=== PATIENT | female | born 1980 | race Caucasian/White ===

== ENCOUNTER 2025-06-15 17:39 | Emergency (ER) | payer SELFPAY ==
[2025-06-15 17:44] VITALS: BP 120/79
[2025-06-15 18:01] LABS: Hematocrit 43.2 % (37.0-47.0); Hemoglobin 14.3 g/dL (12.0-16.0); Mean Corp Hgb Conc. 33.1 g/dL (33.0-37.0); Mean Corpuscular Volume 85.0 fL (81.0-99.0); Nucleated Red Blood Cells % 0 %; Platelet Count 223 10^3/uL (130-400); Red Cell Dist. Width 13.6 % (11.5-14.5)
[2025-06-15 18:11] LABS: Urine Character Clear (Clear)
[2025-06-15 18:17] LABS: Urine Red Blood Cell 0-2 /HPF (0-2); Urine White Cell 0-2 /HPF (0-5)
[2025-06-15 18:23] LABS: ALT (SGPT) 23 U/L (0-35); AST (SGOT) 29 U/L (14-36); Albumin 4.9 g/dl (3.5-5.0); Alkaline Phosphatase 73 U/L (38-126); Blood Urea Nitrogen 9 mg/dl (7-17); Calcium 9.9 mg/dl (8.4-10.2); Carbon Dioxide 26 mmol/L (22-30); Glucose 98 mg/dl (70-99); Lipase 154 U/L (23-300); Total Protein 8.2 g/dl (6.3-8.2); eGFR > 60.00
[2025-06-15 18:51] LABS: Chloride 102 mmol/L (98-107); Potassium 4.0 mmol/L (3.5-5.1); Sodium 138 mmol/L (135-145)
[2025-06-15 21:32] VITALS: BMI 37.2
[2025-06-15 21:34] VITALS: BP 128/76
--- NOTE | 2025-06-15 21:59 | ED.GENMED ---
Addendum entered and electronically signed by Alicia Espinoza MD 06/16/25 04:00:
358AM Pt now states that she watns to go home and feels better. She is comfortable appearing. Abd soft, nd, nt. I still recommend admission/obs given her sxs, no etiology noted, plan for consultants, possibility of intermittent torsion, etc but
she declines. Pt aware if she changes her mind,e ncoruaged to rted dannie.
Addendum entered and electronically signed by Alicia Espinoza MD 06/16/25 03:48:
3:47 AM vision report ultrasound of the pelvis nonenlarged right ovary with normal vascular flow no dominant cyst no pelvic free fluid. Workup here is continuously reassuring, I have not identified a specific etiology for patient's pain. I am
reluctant to continue to administer opioids. We cannot give Toradol given patient's reported history of hives with this. I will try a p.o. agent that is nonnarcotic, overnight observation, discussed with hospitalist.
Addendum entered and electronically signed by Alicia Espinoza MD 06/16/25 02:23:
2:22 AM patient was pain-free upon discharge however as she was preparing to leave in the waiting room, she says the pain came on again, again in the right lower quadrant, associated with nausea but no vomiting. She was brought back to room 2,
placed in a gown, IV now currently being placed. Ultrasound is here and she will be promptly brought over to ultrasound for transvaginal study to rule out a G YN etiology of her symptoms.
Original Note:
History of Present Illness
General
Chief Complaint: Abdominal Pain
Source: patient
Time Seen by Provider: 06/15/25 21:41
History of Present Illness
History of Present Illness:
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 She denies back pain, chest pain, dyspnea, fever,
chills, urinary symptoms, vaginal bleeding or discharge. Patient has been on Mounjaro for approximately 2 months. She denies any other medications. She denies sick contacts. Pain is located across her lower abdomen particularly at the right
lower quadrant. She states that driving over here and going over bumps made the pain worse, no relieving factors.
Past History
Past History
ED Past Medical History: NIDDM
ED Past Surgical History: Cholecystectomy, and Gynecological
Social History
Tobacco: Non-smoker
Alcohol: None
Drug: None
Personal:
Living: with family
Employment: Employed
Phy Exam
Physical Exam
Physical Exam:
GENERAL: Alert , in no apparent distress
EYE: pupils equal and reactive
NECK: Supple, no significant adenopathy.
ENT: o/p clr, mm dry
CARDIAC: Regular rate and rhythm .
LUNGS: Clear breath sounds bilaterally, no acute respiratory distress, no wheezes/rales/rhonchi
ABDOMEN: Soft, moderate right lower quadrant tenderness, no r/g, no cvat
NEUROLOGICAL: Alert and oriented, no focal neuro deficits
SKIN: Warm and dry, skin intact.
MUSCULOSKELETAL: No edema, well perfused.
PSYCH: Normal and appropriate interaction.
Course
Orders/Labs/Results
Orders:
Orders
06/15/25 17:54
Complete Blood Count/With Diff Urgent
Comprehensive Metabolic Panel Urgent
Lipase Urgent
Urinalysis Reflex To Culture Urgent
Date Specimen was Collected: 06/15/25
Time Specimen was Collected: 17:48
Urine Microscopic Reflex Cult Urgent
06/15/25 22:01
CT Abd/Pel (IV only)-DH only Urgent
Comment:
Reason For Exam: rlq pain,,n/v
0.9% Sodium Chloride 1000 ml [Nss] 1,000 ml IV BOLUS
HYDROmorphone [Dilaudid] 1 mg IV NOW STA
06/15/25 22:07
Ondansetron Injectable [Zofran] 4 mg .ROUTE .STK-MED ONE
Ondansetron Injectable [Zofran] 4 mg IV NOW STA
06/15/25 23:15
HYDROmorphone [Dilaudid] 0.25 mg IV NOW STA
Abnormal Lab Results
06/15/25
17:54
MPV 11.4 H fL
(7.4-10.4)
Urine Bacteria (Reflex) Few A
(Negative)
Urine Albumin (Reflex) 1+ A
(Neg - Trace)
06/15/25 17:54
06/15/25 17:54
Vital Signs
Initial and Last Documented VS:
Initial Vital Signs
Temp Pulse Resp BP Pulse Ox
99.0 F 80 16 120/79 98
06/15/25 17:44 06/15/25 17:44 06/15/25 17:44 06/15/25 17:44 06/15/25 17:44
Last Documented Vital Signs
Temp Pulse Resp BP Pulse Ox
97.8 F 79 16 116/73 95
06/15/25 21:51 06/16/25 01:15 06/16/25 01:15 06/16/25 01:00 06/16/25 01:15
*Pulse Oximetry
SaO2: 98
Oxygen Mode of Delivery: Room air
Patient hypoxic: no
*Critical Care Note
Total Time (30-74mins, 75-104mins- exclusive of procedures): Not Applicable
Update Note
Update Note:
Patient presents to the Emergency Department with __abdominal pain nausea vomiting
Number and Complexity of Problems Addressed at the Encounter
� Chronic conditions affecting care:
� Acute Exacerbation and/or Progression of Chronic Illness:
� Differential Diagnosis includes: But not limited to stone, appendicitis, kidney stone, pancreatitis, bowel obstruction, mesenteric ischemia, etc. etc. etc. etc.
Amount and/or Complexity of Data to be Reviewed and Analyzed
� I performed an independent evaluation of and my interpretation is:
EKG:
CT:The appendix is not visualized. There appears to be a small focus of suture material along the posteromedial wall of the cecum suggestive of a previous appendectomy, but recommend clinical correlation. No inflammatory changes
are appreciated in the right lower quadrant.
Xrays:
Laboratory Studies: Unremarkable, lipase normal, hCG negative, normal white blood cell count, LFTs unremarkable, UA generally unremarkable
Other:
� Review of other/old records reveals:
� Clinical information was obtained by an independent historian:
� Prescriptions/Medications Considered but not given:
� Further testing considered but not performed:
Risk of Complications and/or Morbidity or Mortality of Patient Management
� Social determinants of health affecting care:
� Discussion with other providers (PCP, Hospitalists, Consultants, etc):
� Escalation of care including admission/observation vs risk of discharge considered: Vitals labs CT noted. Patient does not recall having her appendix removed but states that it could have been when she was a little girl. She
is feeling much better here, no vomiting, abdomen now nontender. No specific etiology noted in extensive workup here, most likely cause related to her Mounjaro which was recently increased. Her last injection was this morning. Instructed patient
to seek advisement from her prescribing doctor before continuing this medication next week. Discussed with her importance of follow-up and reasons return to the ER.
ED Attending Note
-
Portions of this chart may have been created with voice recognition software.� Occasional wrong word or��sound alike� substitutions may have occurred due to the inherent limitations of voice recognition software.
Discharge Plan
Departure
Patient Disposition: Home (Routine Discharge)
Date of Disposition: 06/16/25
Time of Disposition: 01:34
Patient with high blood pressure during this ER visit?: No
Condition: Good
Discharge Problem:
Abdominal pain
Instructions: Nausea and Vomiting, Adult (DC), Abdominal Pain
Referrals:
NONE,* [Family Provider, Internal Medicine]
Activity Restrictions/Additional Instructions:
IF YOU DEVELOP FEVER, RECURRENT VOMITING, RECURRENT OR NEW ABDOMINAL PAIN, ANY CHEST PAIN, OR OTHER WORRISOME SIGNS, PLEASE RETURN TO THE ER IMMEDIATELY! PLEASE CONSULT WITH YOUR DOCTOR BEFORE TAKING FURTHER DIABETES MEDICATION. PLEASE SEE YOUR
DOCTOR EARLY THIS WEEK.
Interventions
Interventions:
*Risk Screen - Suicide Last Done: 06/15/25 17:44
*General Assessment Last Done: 06/15/25 21:33
*Neglect/Abuse Screening Last Done: 06/15/25 17:44
*ED- Fall Risk Assessment Last Done: 06/15/25 21:52
*ED COVID-19 Vaccine History Last Done: 06/15/25 21:33
NA-Efgdhe-Ciofngecof Assessment Last Done: 06/15/25 21:53
Discharge Date and Time
Print Language: CHILEAN
[2025-06-15 22:00] VITALS: BP 117/79
[2025-06-15] MEDS: ZOFRAN 4 MG IV (22:08)
[2025-06-15] MEDS: NSS 1000 IV (22:08)
[2025-06-15] MEDS: DILAUDID 1 MG IV (22:09)
[2025-06-15 23:00] VITALS: BP 118/75
[2025-06-15] MEDS: DILAUDID 0.25 MG IV (23:37)
[2025-06-16 00:01] VITALS: BP 124/73
[2025-06-16 01:00] VITALS: BP 116/73
[2025-06-16 01:43] VITALS: BP 124/70
[2025-06-16 01:52] VITALS: BP 124/70
[2025-06-16 02:12] VITALS: BP 154/101
--- NOTE | 2025-06-16 02:18 | ED.GENMED ---
History of Present Illness
General
Chief Complaint: Abdominal Pain
Time Seen by Provider: 06/15/25 21:41
Past History
Past History
ED Past Medical History: NIDDM
ED Past Surgical History: Cholecystectomy, and Gynecological
Social History
Tobacco: Non-smoker
Alcohol: None
Drug: None
Personal:
Living: with family
Employment: Employed
Course
Orders/Labs/Results
Orders:
Orders
06/15/25 17:54
Complete Blood Count/With Diff Urgent
Comprehensive Metabolic Panel Urgent
Lipase Urgent
Urinalysis Reflex To Culture Urgent
Date Specimen was Collected: 06/15/25
Time Specimen was Collected: 17:48
Urine Microscopic Reflex Cult Urgent
06/15/25 22:01
CT Abd/Pel (IV only)-DH only Urgent
Comment:
Reason For Exam: rlq pain,,n/v
0.9% Sodium Chloride 1000 ml [Nss] 1,000 ml IV BOLUS
HYDROmorphone [Dilaudid] 1 mg IV NOW STA
06/15/25 22:07
Ondansetron Injectable [Zofran] 4 mg .ROUTE .STK-MED ONE
Ondansetron Injectable [Zofran] 4 mg IV NOW STA
06/15/25 23:15
HYDROmorphone [Dilaudid] 0.25 mg IV NOW STA
06/16/25 02:30
US Pelvis Only (non-obstetric) Urgent
Comment:
Reason For Exam: rlq pain
06/16/25 03:48
Dicyclomine [Bentyl] 20 mg PO NOW STA
Abnormal Lab Results
06/15/25
17:54
MPV 11.4 H fL
(7.4-10.4)
Urine Bacteria (Reflex) Few A
(Negative)
Urine Albumin (Reflex) 1+ A
(Neg - Trace)
06/15/25 17:54
06/15/25 17:54
Vital Signs
Initial and Last Documented VS:
Initial Vital Signs
Temp Pulse Resp BP Pulse Ox
99.0 F 80 16 120/79 98
06/15/25 17:44 06/15/25 17:44 06/15/25 17:44 06/15/25 17:44 06/15/25 17:44
Last Documented Vital Signs
Temp Pulse Resp BP Pulse Ox
98.1 F 73 19 154/101 95
06/16/25 01:52 06/16/25 03:02 06/16/25 03:02 06/16/25 02:12 06/16/25 03:02
*Pulse Oximetry
SaO2: 95
Oxygen Mode of Delivery: Room air
ED Attending Note
-
Portions of this chart may have been created with voice recognition software.� Occasional wrong word or��sound alike� substitutions may have occurred due to the inherent limitations of voice recognition software.
Discharge Plan
Departure
Patient Disposition: Home (Routine Discharge)
Date of Disposition: 06/16/25
Time of Disposition: 03:49
Presentation/result/management discussed w/ accepting MD/DO: Hospitalist
Patient with high blood pressure during this ER visit?: No
Condition: Good
Discharge Problem:
Abdominal pain
Instructions: Nausea and Vomiting, Adult (DC), Abdominal Pain
Referrals:
NONE,* [Family Provider, Internal Medicine]
Activity Restrictions/Additional Instructions:
IF YOU DEVELOP FEVER, RECURRENT VOMITING, RECURRENT OR NEW ABDOMINAL PAIN, ANY CHEST PAIN, OR OTHER WORRISOME SIGNS, PLEASE RETURN TO THE ER IMMEDIATELY! PLEASE CONSULT WITH YOUR DOCTOR BEFORE TAKING FURTHER DIABETES MEDICATION. PLEASE SEE YOUR
DOCTOR EARLY THIS WEEK.
Interventions
Interventions:
*Risk Screen - Suicide Last Done: 06/15/25 17:44
*General Assessment Last Done: 06/15/25 21:33
*Neglect/Abuse Screening Last Done: 06/15/25 17:44
*ED- Fall Risk Assessment Last Done: 06/15/25 21:52
*ED COVID-19 Vaccine History Last Done: 06/15/25 21:33
*Nursing Disposition Last Done: 06/16/25 01:52
PR-Jdnrke-Dwavchxvjd Assessment Last Done: 06/15/25 21:53
Discharge Date and Time
Print Language: UZBEK
--- NOTE | 2025-06-16 02:32 | EDRN ---
Pt was d/c and on her way out of the emergency room lobby where she stated she 'had severe pain that required her to sit. and then so unbearable she had to come back in the ER.' Dr. Espinoza was made aware of this and pt was re-registered and brought
back into room [address] Espinoza to re-asses her. Pt is tearful at bedside during assessment. New orders being placed.
[2025-06-16 03:10] VITALS: BP 106/88
--- NOTE | 2025-06-16 03:59 | EDRN ---
After admission order was put in, pt explained to me how she no longer wants to be admitted and after discussing with her mother, would like to go home. Pt states 'she would rather be at home taking Tylenol than being in the hospital taking
Tylenol.' and believes her pain can be managed at home. I had pt walk the unit to ensure her pain was manageable from home since last time she walked out to leave the department she had to turn around and come back d/t the pain being to severe. Pt
was able to walk around with little pain that pt states, 'is manageable and can deal with at home.' Dr. Espinoza made aware of the pt's decision and is at bedside discussing d/c.
== END 2025-06-16 04:39 | disposition home or self-care (01) ==
LOC: EMR 17:39
PROVIDERS: Emergency Medicine; EMERGENCY PHYSICIAN Emergency Medicine
DX: R10.9 Unspecified abdominal pain (principal); R11.2 Nausea with vomiting, unspecified; E11.9 Type 2 diabetes mellitus without complications; Z90.49 Acquired absence of other specified parts of digestive tract; Z90.710 Acquired absence of both cervix and uterus; Z90.721 Acquired absence of ovaries, unilateral
CPT/HCPCS: 99284; 96374; 96375; 96376; 96361; 74177; 76856; 80053; 81003; 81015; 83690; 85025; Q9967